=== PATIENT | female | born 1990 | race African-American/Black ===

== ENCOUNTER 2016-09-18 09:38 | Outpatient (CLI) ==
[2015-11-01 17:25] VITALS: BMI 25.0
[2016-09-18 10:55] LABS: SERUM PREGNANCY INTERNAL QC INTERNAL QC VALID
== END 2016-09-18 09:39 | disposition home or self-care (01) ==
LOC: LAB 09:38
PROVIDERS: ATTEND Family Medicine
DX: N92.6 Irregular menstruation, unspecified (principal)
CPT/HCPCS: 36415; 84703

== ENCOUNTER 2016-09-22 08:39 | Outpatient (CLI) ==
[2015-11-01 17:25] VITALS: BMI 25.0
[2016-09-22 08:56] LABS: BASOPHILS % (AUTO) 0.3 % (0.0-3.0); EOSINOPHILS # (AUTO) 0.2 K/ul (0.0-0.7); HEMATOCRIT 37.4 % (37.0-47.0); HEMOGLOBIN 12.8 g/dl (12.0-16.0); IMMATURE GRANULOCYTE % (AUTO) 0.3 % (0.0-5.0); LYMPHOCYTES # (AUTO) 2.4 K/uL (0.60-3.4); LYMPHOCYTES % (AUTO) 27.2 (10.0-50.0); MEAN CORPUSCULAR HEMOGLOBIN 31.8 pg (27.0-31.0); MEAN CORPUSCULAR HGB CONC 34.2 (31.8-35.4); MONOCYTES # (AUTO) 0.4 K/uL (0.4-2.0); MONOCYTES % (AUTO) 4.5 (0-10); NEUTROPHILS # (AUTO) 5.7 K/ul (2.0-6.9); NEUTROPHILS % (AUTO) 65.7; PLATELET COUNT 199 10^3/uL (140-440); RED BLOOD COUNT 4.02 10^6/ul (4.20-5.40); WHITE BLOOD COUNT 8.63 K/ul (4.6-10.2)
[2016-09-22 08:58] LABS: BILIRUBIN,URINE Negative (NEGATIVE); KETONES,URINE Negative (NEGATIVE); LEUKOCYTE ESTERASE ,URINE Negative (NEGATIVE); NITRITE,URINE Negative (NEGATIVE); PH,URINE 6.5 (5-9); PROTEIN,URINE Trace (NEGATIVE); URINE, BLOOD 1+ (NEGATIVE)
[2016-09-22 09:12] LABS: SERUM PREGNANCY INTERNAL QC INTERNAL QC VALID
[2016-09-22 09:18] LABS: ADD URINE MICROSCOPIC YES; BACTERIA,URINE 2+ (NOT PRESENT)
[2016-09-22 09:20] LABS: COCAIN SCREEN,URINE NEGATIVE (NEGATIVE)
[2016-09-22 09:32] LABS: ALBUMIN/GLOBULIN RATIO 1.38; ANION GAP 15.4; BILIRUBIN,TOTAL 0.32 mg/dL (0.00-1.20); BUN/CREATININE RATIO 11.36; CHOL/HDL RATIO 2.8 (4.5-5.5); CREATININE 0.88 mg/dL (0.60-1.30); POTASSIUM 3.4 mmol/L (3.5-5.10); TOTAL PROTEIN 6.9 g/dL (6.4-8.2)
== END 2016-09-22 08:40 | disposition home or self-care (01) ==
LOC: LAB 08:39
PROVIDERS: ATTEND Family Medicine
DX: N92.6 Irregular menstruation, unspecified (principal); E78.1 Pure hyperglyceridemia; Z87.440 Personal history of urinary (tract) infections
CPT/HCPCS: 36415; 80053; 80061; 80306; 81001; 84439; 84443; 84703; 85025; 87086; 87186

== ENCOUNTER 2017-03-15 14:41 | Outpatient (CLI) ==
[2015-11-01 17:25] VITALS: BMI 25.0
[2017-03-15 15:54] LABS: SERUM PREGNANCY INTERNAL QC INTERNAL QC VALID
== END 2017-03-15 14:42 | disposition home or self-care (01) ==
LOC: LAB 14:41
PROVIDERS: ATTEND Family Medicine
DX: N91.2 Amenorrhea, unspecified (principal)
CPT/HCPCS: 36415; 84703

== ENCOUNTER 2017-03-17 08:23 | Outpatient (CLI) ==
[2015-11-01 17:25] VITALS: BMI 25.0
[2017-03-17 08:44] LABS: BILIRUBIN,URINE Negative (NEGATIVE); KETONES,URINE Trace (NEGATIVE); LEUKOCYTE ESTERASE ,URINE Trace (NEGATIVE); NITRITE,URINE Positive (NEGATIVE); PH,URINE 6.5 (5-9); PROTEIN,URINE 1+ (NEGATIVE); URINE, BLOOD 3+ (NEGATIVE)
[2017-03-17 08:47] LABS: ADD URINE MICROSCOPIC YES
[2017-03-17 08:48] LABS: BACTERIA,URINE 1+ (NOT PRESENT)
[2017-03-17 08:57] LABS: COCAIN SCREEN,URINE NEGATIVE (NEGATIVE)
[2017-03-17 09:00] LABS: BASOPHILS % (AUTO) 0.6 % (0.0-3.0); EOSINOPHILS # (AUTO) 0.1 K/ul (0.0-0.7); EOSINOPHILS % (AUTO) 2.6 % (0.0-7.0); HEMATOCRIT 34.1 % (37.0-47.0); IMMATURE GRANULOCYTE % (AUTO) 0.2 % (0.0-5.0); LYMPHOCYTES # (AUTO) 1.6 K/uL (0.60-3.4); LYMPHOCYTES % (AUTO) 32.4 (10.0-50.0); MEAN CORPUSCULAR HEMOGLOBIN 32.3 pg (27.0-31.0); MEAN CORPUSCULAR HGB CONC 35.2 (31.8-35.4); MEAN CORPUSCULAR VOLUME 91.9 fl (81.0-99.0); MONOCYTES # (AUTO) 0.4 K/uL (0.4-2.0); MONOCYTES % (AUTO) 8.5 (0-10); NEUTROPHILS # (AUTO) 2.8 K/ul (2.0-6.9); NEUTROPHILS % (AUTO) 55.7; PLATELET COUNT 195 10^3/uL (140-440); RED BLOOD COUNT 3.71 10^6/ul (4.20-5.40); WHITE BLOOD COUNT 5.06 K/ul (4.6-10.2)
[2017-03-17 09:20] LABS: ALBUMIN 4.1 g/dL (3.4-5.0); ALBUMIN/GLOBULIN RATIO 1.41; ANION GAP 15.9; BILIRUBIN,TOTAL 1.12 mg/dL (0.00-1.20); BUN/CREATININE RATIO 7.5; CALCIUM 9.4 mg/dL (8.2-10.2); CHOL/HDL RATIO 2.3 (4.5-5.5); CREATININE 0.8 mg/dL (0.60-1.30); POTASSIUM 2.9 mmol/L (3.5-5.10)
== END 2017-03-17 08:24 | disposition home or self-care (01) ==
LOC: LAB 08:23
PROVIDERS: ATTEND Family Medicine
DX: R74.0 Nonspecific elevation of levels of transaminase and lactic acid dehydrogenase [LDH] (principal); E78.1 Pure hyperglyceridemia; R63.4 Abnormal weight loss
CPT/HCPCS: 36415; 80053; 80061; 80306; 81001; 84439; 84443; 85025; 87086

== ENCOUNTER 2017-03-19 17:49 | Emergency (ER) ==
[2017-03-19 17:54] VITALS: BP 116/72; TEMP 99.4; BMI 17.0
--- NOTE | 2017-03-19 18:02 | ED.PDOC ---
General ED Provider: Dr. CHRIS VASQUES Chief Complaint: Non-specific Complaint Stated Complaint: pustule right buttock Time Seen by Physician: 18:00 (seen with Raysa RN at all times ) Mode of Arrival: Walk-In Information Source: Patient Exam Limitations: No limitations Primary Care Provider: MOO AMAYA Nursing and Triage Documentation Reviewed and Agree: Yes (does not recall insect bite photos submitted ) Skin Complaint Exam - Skin/Soft Tissue Complaint/Exam Onset/Duration: 1 day Symptoms Are: Still present Timing: Constant Initial Severity: Mild Current Severity: Mild Character: Reports: Swelling, Raised, Painful Aggravating: Reports: Touch Alleviating: Reports: None Associated Signs and Symptoms: Denies: Fever, Chills, Itching, Drainage, Bruising, Tenderness, Red streaks, Joint swelling Recent Exposure to Others w/Similar Symptoms: No Skin Findings: Present: Erythema, Pustules. Absent: Fluctuant mass, Lymphadenopathy, Weeping skin, Wet ulceration, Dry ulceration Differential Diagnoses: Abscess, MRSA Review of Systems - Review Of Systems Constitutional: Reports: No symptoms Eyes: Reports: No symptoms Ears, Nose, Mouth, Throat: Reports: No symptoms Respiratory: Reports: No symptoms Cardiac: Reports: No symptoms GI: Reports: No symptoms : Reports: No symptoms Musculoskeletal: Reports: No symptoms Skin: Reports: Other (pustule see photo) Neurological: Reports: No symptoms Endocrine: Reports: No symptoms Hematologic/Lymphatic: Reports: No symptoms All Other Systems: Reviewed and Negative Past Medical History - Past Medical History Previously Healthy: Yes Endocrine: Reports: None Cardiovascular: Reports: None Respiratory: Reports: None Hematological: Reports: None Gastrointestinal: Reports: None Genitourinary: Reports: None Neuro/Psych: Reports: None Musculoskeletal: Reports: None Cancer: Reports: None Last Menstrual Period: 03/19/17 - Surgical History General Surgical History: Reports: None - Family History Family History: Reports: Unknown - Social History Smoking Status: Never smoker Hx Substance Use: No Alcohol Screening: Occasionally - Immunizations Tetanus Shot up to Date: No Physical Exam - Physical Exam Appearance: Well-appearing, No pain distress, Well-nourished Eyes: DASHAWN, EOMI, Conjunctiva clear ENT: Ears normal, Nose normal, Oropharynx normal Respiratory: Airway patent, Breath sounds clear, Breath sounds equal, Respirations nonlabored Cardiovascular: RRR, Pulses normal, No rub, No murmur GI/: Soft, Nontender, No masses, Bowel sounds normal, No Organomegaly Musculoskeletal: Normal strength, ROM intact, No edema, No calf tenderness Skin: Warm, Dry (pustule 2 cm none pointing see photos) Neurological: Sensation intact, Motor intact, Reflexes intact, Cranial nerves intact, Alert, Oriented Psychiatric: Affect appropriate, Mood appropriate Critical Care Note - Critical Care Note Total Time (mins): 0 Course - Course Vital Signs: Temp Pulse Resp BP Pulse Ox 03/19/17 17:51 99.4 F 108 H 16 116/72 99 Departure - Departure Time of Disposition: 18:03 Disposition: HOME SELF-CARE Discharge Problem: Abscess Instructions: Abscess (ED) Condition: Good Pt referred to PMD for follow-up: Yes Additional Instructions: Please call your Family Physician as soon as possible to schedule a follow-up appointment. Allergies/Adverse Reactions: Allergies No Known Allergies Allergy (Unverified 03/19/17 17:54) Home Medications: Ambulatory Orders 1 [No Reported Medications] 03/19/17
== END 2017-03-19 18:09 | disposition home or self-care (01) ==
LOC: ED 17:49
DX: L02.31 Cutaneous abscess of buttock (principal)
CPT/HCPCS: 99282

== ENCOUNTER 2017-03-30 08:13 | Outpatient (CLI) ==
[2017-03-30 08:43] LABS: ADD URINE MICROSCOPIC NO; BILIRUBIN,URINE Negative (NEGATIVE); KETONES,URINE Negative (NEGATIVE); LEUKOCYTE ESTERASE ,URINE Negative (NEGATIVE); NITRITE,URINE Negative (NEGATIVE); PH,URINE 6.5 (5-9); PROTEIN,URINE Negative (NEGATIVE); URINE, BLOOD Negative (NEGATIVE)
[2017-03-30 08:44] LABS: ALBUMIN 3.3 g/dL (3.4-5.0); ALBUMIN/GLOBULIN RATIO 1.18; ANION GAP 12.1; BILIRUBIN,TOTAL 0.21 mg/dL (0.00-1.20); BUN/CREATININE RATIO 12.32; CREATININE 0.73 mg/dL (0.60-1.30); POTASSIUM 4.1 mmol/L (3.5-5.10); TOTAL PROTEIN 6.1 g/dL (6.4-8.2)
== END 2017-03-30 08:14 | disposition home or self-care (01) ==
LOC: LAB 08:13
PROVIDERS: ATTEND Family Medicine
DX: R74.0 Nonspecific elevation of levels of transaminase and lactic acid dehydrogenase [LDH] (principal); R74.8 Abnormal levels of other serum enzymes; E87.6 Hypokalemia; N39.0 Urinary tract infection, site not specified
CPT/HCPCS: 36415; 80053; 80074; 81001

== ENCOUNTER 2017-08-19 08:43 | Outpatient (CLI) | END 2017-08-19 08:44 | disposition home or self-care (01) | LOC: LAB 08:43 | PROVIDERS: ATTEND Family Medicine | DX: R74.0 Nonspecific elevation of levels of transaminase and lactic acid dehydrogenase [LDH] (principal); R74.8 Abnormal levels of other serum enzymes; F31.9 Bipolar disorder, unspecified; Z87.440 Personal history of urinary (tract) infections | CPT/HCPCS: 36415; 80053; 80061; 80306; 81001; 84439; 84443; 85025 ==

== ENCOUNTER 2017-09-06 08:45 | Outpatient (CLI) ==
--- NOTE | 2017-09-06 09:33 | CT ---
EXAM: CT of the abdomen without contrast History: Alcoholic liver damage Technique: Multiplanar CT images through the abdomen were obtained without the administration of IV contrast Findings: Lung bases are free of consolidation. No acute osseous abnormalities. No peripancreatic inflammation. There are a few 1-2 mm left renal calculi. No right renal calculi. No hydronephrosis. The visualized appendix is not dilated or inflamed. Submucosal fat deposition se en within the [place] of the ascending colon. The stomach is moderately distended with fluid and debri s. No dilated loops of bowel. Adrenal glands are unremarkable. The liver and spleen are not enlarge d. Calcified granulomas are seen within the spleen. No evidence for a fatty liver is identified by CT. Within limitations of a noncontrast study. No focal liver lesions identified. No discrete gall stones identified by CT. No free air and no ascites. Impression: 1. No acute intra-abdominal process. 2. Normal appearing liver. 3. Submucosal fat deposition seen within the [place] of the ascending colon suggesting prior episodes of inflammatory bowel disease. 4. Nonobstructing left nephrolithiasis
== END 2017-09-06 08:46 | disposition home or self-care (01) ==
LOC: RAD 08:45
PROVIDERS: ATTEND Family Medicine
DX: K70.9 Alcoholic liver disease, unspecified (principal); R74.0 Nonspecific elevation of levels of transaminase and lactic acid dehydrogenase [LDH]; K76.0 Fatty (change of) liver, not elsewhere classified

== ENCOUNTER 2017-10-19 13:07 | Outpatient (CLI) | END 2017-10-19 13:08 | disposition home or self-care (01) | LOC: FCC-LAB 13:07 | PROVIDERS: ATTEND Nurse Practitioner Family | DX: Z00.00 Encounter for general adult medical examination without abnormal findings (principal); D64.9 Anemia, unspecified | CPT/HCPCS: 36415; 80053; 80061; 81001; 82607; 82728; 83540; 83550; 84439; 84443; 84466; 85025; 85045 ==

== ENCOUNTER 2019-01-30 14:45 | Emergency (ER) ==
[2019-01-30 14:50] VITALS: BP 114/54; TEMP 98.5; BMI 24.3
== END 2019-01-30 15:54 | disposition left against medical advice (07) ==
LOC: ED 14:45
DX: Z32.00 Encounter for pregnancy test, result unknown (principal)